=== PATIENT | female | born 1990 | race Caucasian/White ===

== ENCOUNTER 2022-04-17 14:58 | Outpatient (REF) | payer SELFPAY ==
--- NOTE | 2022-04-17 16:51 | MHC.AU.HA3 ---
Hearing Instrument Follow-Up- Binaural Date of Visit: 04/17/22 Right Ear: Aquilino, Model, Color, Serial Number: Ming Mcgee P70-R SN: [id number] Color: Velvet Black [employer] Analyst Repair Warranty: 06/06/2025 [employer] Analyst Loss and Damage Warranty: 06/06/2025 [facility] Service Plan: 04/03/2023 Battery Size: Rechargeable Bacon Stringer/Slim Tube: 1M Earmold/Dome/CShell/SlimTip:Small vented dome Type of Wax Guard: Cerushield Dispensed By: [facility] Date of Fittin04/03/2022 Left Ear: Aquilino, Model, Color, Serial Number: Ming Mcgee P70-R SN: [id number] Color: Velvet Black Crime [employer] Analyst Repair Warranty: 06/06/2025 Crime Laboratory Analyst Loss and Damage Warranty: [facility] Service Plan: 04/03/2023 Battery Size: Rechargeable Bacon Stringer/Slim Tube: 1M Earmold/Dome/CShell/SlimTip: Small vented dome Type of Wax Guard: Cerusheild Dispensed By: [facility] Date of Fittin04/03/2022 Follow-Up Summary: Lesley reported that overall she is doing great with the hearing aids. She notices significant benefit particularly with the clarity of speech and her hearing does not sound muffled anymore. Increased the NoiseBlock settings in [id number]-[id number] and aszeets-hw-roxtc settings for more support in background noise. Otherwise, no other programming adjustments needed. Data logging showed about 15 hours of use per day. Recommendations: An additional follow-up was scheduled in three months to monitor progress and for a clean and check. Diagnosis Code(s): Primary Diagnosis: H90.3 Bilateral Sensorineural Hearing Loss Signature: Provider: Christian Peña, [facility]
== END 2022-04-17 14:59 | disposition home or self-care (01) ==
LOC: HO.HAP 14:58
PROVIDERS: Visit Provider Otolaryngology
DX: Z13.89 Encounter for screening for other disorder (principal)

== ENCOUNTER 2022-07-16 15:52 | Outpatient (REF) | payer SELFPAY ==
--- NOTE | 2022-07-16 16:34 | MHC.AU.HA3 ---
Hearing Instrument Follow-Up- Binaural Date of Visit: 07/16/22 Right Ear: Aquilino, Model, Color, Serial Number: Ming Mcgee P70-R SN: [id number] Color: Velvet Black Dag Sprayer Repair Warranty: 06/06/2025 [employer] Sprayer Loss and Damage Warranty: 06/06/2025 [facility] Service Plan: 04/03/2023 Battery Size: Rechargeable Stone Decorator/Slim Tube: 1M Earmold/Dome/CShell/SlimTip:Small vented dome Type of Wax Guard: Cerushield Dispensed By: [facility] Date of Fittin04/03/2022 Left Ear: Aquilino, Model, Color, Serial Number: Ming Garciao P70-R SN: [id number] Color: Velvet Black Dag Sprayer Repair Warranty: 06/06/2025 Dag Sprayer Loss and Damage Warranty: [facility] Service Plan: 04/03/2023 Battery Size: Rechargeable Stone Decorator/Slim Tube: 1M Earmold/Dome/CShell/SlimTip: Small vented dome Type of Wax Guard: Cerusheild Dispensed By: [facility] Date of Fittin04/03/2022 Follow-Up Summary: Lesley returned for a routine clean and check of her hearing aids. She reported that overall she is doing well with the hearing aids and has no concerns with sound quality at this time. Cleaned both hearing aids. Vacuumed microphones. Replaced domes and wax guards. A listening check demonstrated that the hearing aids are in good working order. Slight wax in both wax guards. Reviewed how to change wax guard and advised changing both domes and wax guards every 3-6 months. Otoscopy clear, bilaterally. Discussed [facility] Service Agreement expires on 04/03/2023 with ahw-byx-vbipqin chargers thereafter. Lesley opted to schedule another clean and check in three months. Recommendations: An additional follow-up was scheduled to monitor progress. Diagnosis Code(s): Primary Diagnosis: H90.3 Bilateral Sensorineural Hearing Loss Signature: Provider: Christian Peña, [facility]
== END 2022-07-16 15:53 | disposition home or self-care (01) ==
LOC: HO.HAP 15:52
PROVIDERS: Visit Provider Otolaryngology
DX: Z13.89 Encounter for screening for other disorder (principal)

== ENCOUNTER 2022-10-29 16:00 | Outpatient (REF) | payer SELFPAY ==
--- NOTE | 2022-10-29 16:32 | MHC.AU.HA3 ---
Hearing Instrument Follow-Up- Binaural Date of Visit: 10/29/22 Right Ear: Aquilino, Model, Color, Serial Number: Ming Garciao P70-R SN: [id number] Color: Velvet Black Artist'S Representative Repair Warranty: 06/06/2025 Artist'S Representative Loss and Damage Warranty: 06/06/2025 [facility] Service Plan: 04/03/2023 Battery Size: Rechargeable Systems Consultant/Slim Tube: 1M Earmold/Dome/CShell/SlimTip:Small vented dome Type of Wax Guard: Cerushield Dispensed By: [facility] Date of Fittin04/03/2022 Left Ear: Aquilino, Model, Color, Serial Number: Ming Alvarezeo P70-R SN: [id number] Color: Velvet Black Artist'S Representative Repair Warranty: 06/06/2025 Artist'S Representative Loss and Damage Warranty: [facility] Service Plan: 04/03/2023 Battery Size: Rechargeable Systems Consultant/Slim Tube: 1M Earmold/Dome/CShell/SlimTip: Small vented dome Type of Wax Guard: Cerusheild Dispensed By: [facility] Date of Fittin04/03/2022 Follow-Up Summary: Lesley returned for routine clean and check of her hearing aids. Cleaned both hearing aids. Replaced domes and wax guards. Ran through dehumidifier. A listening check demonstrated that the hearing aids are in good working order. Recommendations: Additional clean & check was scheduled 02/20/2023 at Lesley's request for one more cleaning prior to Service Agreement expiring. Diagnosis Code(s): Primary Diagnosis: H90.3 Bilateral Sensorineural Hearing Loss Signature: Provider: Christian Peña, [facility]
== END 2022-10-29 16:01 | disposition home or self-care (01) ==
LOC: HO.HAP 16:00
PROVIDERS: Visit Provider Otolaryngology
DX: Z13.89 Encounter for screening for other disorder (principal)

== ENCOUNTER 2023-02-20 15:58 | Outpatient (REF) | payer SELFPAY | END 2023-02-20 15:59 | disposition home or self-care (01) | LOC: HO.HAP 15:58 | PROVIDERS: Visit Provider Internal Medicine | DX: Z13.89 Encounter for screening for other disorder (principal) ==